=== PATIENT | male | born 1980 | race Caucasian/White ===

== ENCOUNTER 2021-11-09 15:27 | Emergency (ER) | payer SELFPAY ==
--- NOTE | ~2021-11-09 | XR_ITS ---
EXAMINATION: XR wrist LT min 3V EXAM DATE: 11/09/2021 15:54 INDICATION: Nki,Ulnar Styloid Process Pain X 6 Months TECHNIQUE: Left wrist frontal, frontal with ulnar deviation, oblique and lateral projections obtained and reviewed. There is no prior study for comparison. FINDINGS: Left wrist scapholunate joint space is maintained. There is an ulnar styloid base chronic appearing avulsion fracture with about 3 mm distraction. There are no acute fractures or dislocations identified. There is no subcutaneous gas. The soft tissue is unremarkable. There are no radiopaq ue foreign bodies. IMPRESSION: Old ulnar styloid base avulsion injury. Reviewed, dictated and finalized at location G. [facility]
[2021-11-09 15:42] VITALS: BP 140/91; PULSE 94; RESP 16; TEMP 37; O2SAT 98
--- NOTE | 2021-11-09 16:42 | ED.GENADULT ---
HPI - General Adult General Chief complaint: Extremity Injury, Upper Stated complaint: left wrist pain Source: patient Mode of arrival: ambulatory Limitations: no limitations History of Present Illness HPI narrative: Patient presents for evaluation of left wrist pain for the last six months. He has a large dog and symptoms started after he was wrestling with the pet. Pain is constant, shooting, rated 7/10 in severity. Pain radiates into left forearm. Certain movements worsen his pain. He has no loss of range of motion. No paresthesias. He is right-hand dominant. He has tried ibuprofen with minimal improvement in his symptoms thereafter. Works as a industrial truck driver Related Data Allergies Allergy/AdvReac Type Severity Reaction Status Date / Time No Known Allergies Allergy Verified 11/09/21 16:15 Review of Systems Review of Systems: CONSTITUTIONAL: Denies fever, chills, or sweats. EYES: Denies visual changes, redness, or discharge. ENT: Denies rhinorrhea, congestion, sore throat, or otalgia. CARDIOVASCULAR: Denies chest pain, palpitations, or edema. RESPIRATORY: Denies cough or dyspnea. GASTROINTESTINAL: Denies abdominal pain, nausea, vomiting, or diarrhea. GENITOURINARY: Denies dysuria or hematuria. SKIN: Denies rash or itching. MUSCULOSKELETAL:Reports left wrist pain. Denies back pain and myalgia NEUROLOGIC: Denies headache, numbness, dizziness, or weakness. PSYCHIATRIC: Denies anxiety or depression. 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 HEAD: Normocephalic, atraumatic. EYES: PERRLA and EOMI. ENT: Nares clear, no rhinorrhea or epistaxis. Mucous membranes moist. Oropharynx without tonsillar hypertrophy exudate or other lesions. Bilateral TMs pearly chavez nonbulging NECK: Supple. No adenopathy or masses. No carotid bruits or JVD CHEST: Clear to auscultation. No respiratory distress. No wheezes rales or rhonchi HEART: Regular rate and rhythm. No murmur heard. Normal peripheral pulses. ABDOMEN: Soft, nontender, nondistended, normal active bowel sounds. EXTREMITIES: Tenderness in left wrist over distal ulnar. There is no significant swelling. No crepitus or deformity. Normal range of motion, however pronation and supination reproduce pain in left wrist SKIN: Warm, dry, no rash. NEURO: No focal deficits. Alert and oriented x3. PSYCH: Normal mood and affect. Course Course Emergency Course: This is a 41-year-old male who presented with complaints of left wrist pain after an injury 6 months ago. X ray shows old ulnar fracture. He has minimal improvement with NSAIDs. We will provide him with linsey wrap and small qty of norco. Advised on RICE therapy. He should purchase wrist splint OTC as this does not appear to be new fracture. Follow up with ortho. Return for worsening symptoms. Pt in agreement with plan of care Level of Care: Express Care Visit Vital Signs Vital signs: Vital Signs Temperature 37.0 C 11/09/21 15:42 Pulse Rate 94 11/09/21 15:42 Resp
--- NOTE | 2021-11-09 17:04 | PC.NURSE ---
PT DECLINED ICE FOR COMFORT
== END 2021-11-09 16:45 | disposition home or self-care (01) ==
PROVIDERS: Emergency Provider Nurse Practitioner
DX: S66.912A Strain of unspecified muscle, fascia and tendon at wrist and hand level, left hand, initial encounter (principal); X58.XXXA Exposure to other specified factors, initial encounter; F17.210 Nicotine dependence, cigarettes, uncomplicated
CPT/HCPCS: 73110; 99213; G0463

== ENCOUNTER 2021-12-14 12:17 | Emergency (ER) | payer SELFPAY ==
--- NOTE | ~2021-12-14 | XR_ITS ---
EXAMINATION: XR hip LT min 2V DATE: 12/14/2021 13:03 INDICATION: Left hip pain. TECHNIQUE: 2 views of left hip were obtained. COMPARISON: None. FINDINGS: Bone alignment is normal. No fracture. Left hip joint space is normal. IMPRESSION: 1. Normal left hip. Reviewed, dictated and finalized at location A. IMPRESSION: 1. Normal left hip.
--- NOTE | ~2021-12-14 | XR_ITS ---
EXAMINATION: XR lumbar spine 2-3V DATE: 12/14/2021 13:04 INDICATION: Low back pain. TECHNIQUE: 3 views of lumbar spine were obtained. COMPARISON: None. FINDINGS: Bone alignment is normal. There is mild chronic anterior wedging of T11 vertebral body. Int ervertebral disc heights are normal. There are endplate osteophytes at most levels. The facet joints are unremarkable. IMPRESSION: 1. Mild lumbar spondylosis. Reviewed, dictated and finalized at location A. IMPRESSION: 1. Mild lumbar spondylosis.
[2021-12-14 12:30] VITALS: BP 143/105; PULSE 96; RESP 18; TEMP 36.9; O2SAT 99
[2021-12-14] MEDS: KETOROLAC (*BKC) 60 MG/2 ML VIAL IM (12:44)
--- NOTE | 2021-12-14 12:56 | ED.BACK ---
HPI - Back Pain/Injury General Chief Complaint: Back Pain/Injury Stated Complaint: Back Pain Time Seen by Provider: 12/14/21 12:38 Source: patient Mode of arrival: ambulatory Limitations: no limitations History of Present Illness HPI Narrative: 41 yo M presents with c/o R sided low back pain for several weeks. denies injury. 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 Also shovels out the back of truck. Has seen at chiropractor for adjustment and not helping pain. Was sent to orthopedics but they said they dont see back pain so then he was referred somewhere else but was then told he needed xrays. Taking advil for pain. Ambulatory with steady gait, hunched over. All systems reviewed and negative except as noted above. Related Data Allergies Allergy/AdvReac Type Severity Reaction Status Date / Time No Known Allergies Allergy Verified 12/14/21 12:50 Review of Systems Review of Systems: CONSTITUTIONAL: Denies fever, chills, or sweats. EYES: Denies visual changes, redness, or discharge. ENT: Denies rhinorrhea, congestion, sore throat, or otalgia. CARDIOVASCULAR: Denies chest pain, palpitations, or edema. RESPIRATORY: Denies cough or dyspnea. GASTROINTESTINAL: Denies abdominal pain, nausea, vomiting, or diarrhea. GENITOURINARY: Denies dysuria or hematuria. SKIN: Denies rash or itching. MUSCULOSKELETAL: Reports left-sided low back pain. NEUROLOGIC: Denies headache, numbness, or weakness. PSYCHIATRIC: Denies anxiety or depression. All other systems reviewed are negative, except as documented in HPI. 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 There is no relevant family history pertinent to the presenting complaint. Exam Narrative: GENERAL: This is a well-nourished, well-developed patient, in no apparent distress. HEAD: normocephalic, atraumatic. EYES: PERRL. Sclera clear/white. Vision is grossly intact. EARS: External ears normal, auditory canals clear and without drainage, TMs normal without perforation. Hearing grossly intact. NOSE: External nose normal with no obvious nasal discharge, nares without redness, no rhinorrhea. THROAT: Mucous membranes moist, posterior pharynx clear. NECK: Neck supple, non-tender without lymphadenopathy, masses or thyromegaly. CARDIOVASCULAR: Regular rate and rhythm without murmurs, gallops, or rubs. RESPIRATORY: Clear to auscultation. Breath sounds equal bilaterally. No wheezes, rales, or rhonchi. GASTROINTESTINAL: Abdomen soft, non-tender, nondistended. Bowel sounds are active. No hepato-splenomegaly, or palpable masses. No guarding. SKIN: warm, Dry, intact with no suspicious lesions or rash, good texture and turgor. NEURO: awake, alert, and oriented to person, place and time. There were no obvious focal neurologic abnormalities. EXTREMITIES: No joint tenderness, effusion, or edema noted. No calf tenderness. Negative Homans sign bilaterally. B
== END 2021-12-14 13:22 | disposition home or self-care (01) ==
PROVIDERS: Emergency Provider Nurse Practitioner Family
DX: M54.50 Low back pain, unspecified (principal); F17.210 Nicotine dependence, cigarettes, uncomplicated
CPT/HCPCS: 72100; 73502; 96372; 99213; G0463; J1885

== ENCOUNTER 2022-08-16 15:42 | Emergency (ER) | payer SELFPAY ==
--- NOTE | ~2022-08-16 | XR_ITS ---
XR hand RT min 3V DATE: 08/16/2022 16:19 INDICATION: Dog bite with puncture wound at the medial proximal third phalangeal and first metacarpal areas TECHNIQUE: AP, lateral, oblique views COMPARISON: None FINDINGS: No fracture or dislocation, periosteal reaction or bone destruction, radiopaque soft tissue foreign body or subcutaneous emphysema. IMPRESSION: Negative Reviewed, dictated and finalized at location A. ESS HELPER IMPRESSION: Negative
[2022-08-16 15:56] VITALS: BP 140/85; PULSE 94; RESP 18; TEMP 36.6; O2SAT 100
--- NOTE | 2022-08-16 15:59 | ED.UPPEXIN ---
HPI - Extremity Injury (Upper) General Chief Complaint: Wound/Laceration Stated Complaint: bit by dog, right right foot right calf Time Seen by Provider: 08/16/22 15:59 Source: patient, RN notes reviewed and old records reviewed Mode of arrival: ambulatory Limitations: no limitations History of Present Illness HPI narrative: 42-year-old male presents to the [facility] with a dog bite to his right hand with swelling and signs of redness with increased warmth to the dorsal aspect. Puncture wounds noted. Patient reports that is his own dog. The dog is up-to-date on immunizations. Bite occurred yesterday. Redness noted to the dorsal hand. Foot has a puncture wound but no signs of infection. Unknown last Tdap Related Data Allergies Allergy/AdvReac Type Severity Reaction Status Date / Time No Known Allergies Allergy Verified 08/16/22 16:03 Review of Systems Review of Systems: All systems reviewed & are unremarkable except as noted in HPI and below Constitutional: Constitutional: Reports no additional constitutional complaints, Denies chills and Denies fever(s) Eyes: Eyes: Reports no additional eye complaints ENT: Reports system reviewed and no additional complaints, except as documented Cardiovascular: Cardiovascular: Reports no additional cardiovascular complaints Respiratory: Respiratory: Reports no additional respiratory complaints Gastrointestinal: Gastrointestinal: Reports no additional gastrointestinal complaints Musculoskeletal: Musculoskeletal: Reports as per HPI Integumentary/Breasts: Skin/Breast: Reports as per HPI Neurologic: Reports system reviewed and no additional complaints, except as documented Psychiatric: Psychiatric: Reports no additional psychiatric complaints Allergic/Immunologic: Allergic/Immunologic: Reports no additional allergic/immunologic complaints [facility] Past Medical History Medical History Strain of wrist, left Surgical History Surgical History No pertinent past surgical history Family History Family History Mother Family history non-contributory Social History Social History Smoking packs per day: 0.5 Smoking cigarettes per day: 10.0 Smoking status: Current every day smoker Tobacco type: cigarettes Alcohol intake: current Alcohol use details: a few drinks daily Substance use: never 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 There is no relevant family history pertinent to the patient complaint. Exam Const: General: healthy appearing, comfortable, no acute distress, well developed, alert and well nourished Nutritional Appearance: well nourished Orientation/consciousness: patient oriented x3 Limitations: no limitations HENMT: Head: normal to inspection Ears: external ears normal Face/Nose/Sinus: Normal external nose present and Normal nares present Face and sinus: normal facial exam Mouth: Yes Normal oral and palatal mucosa present, Yes lip normal and Yes moist mucous membranes Throat: posterior oropharynx normal and uvula midline Eyes: General: appearance normal, both eyes and all related structures Pupils: Equal, round and reactive pupils present Neck: Neck: normal visual inspection, full ROM, no lymphadenopathy and no meningeal signs Chest: Chest palpation & inspection: normal inspection of the chest Resp: Effort & Inspection: normal respiratory effort and no use of accessory muscles Auscultation: clear to auscultation bilatera
[2022-08-16] MEDS: TETANUS,DIPHTHERIA,AC PERTUSSIS ADULT (0.5 ML) BOOSTRIX IM (16:28)
[2022-08-16] MEDS: cefTRIAXone 1 GM, LIDOCAINE HCL 1% LOCAL INJ 2.1 ML IM (17:10)
--- NOTE | 2022-08-16 20:42 | PC.NURSE ---
1800 noted upon arrival pt refused transfer to er for further work-up, including labs/ iv antibiotics, as provider asks after assessment/evaluation. upon discharge states will go to er for worsening symptoms.
== END 2022-08-16 17:30 | disposition home or self-care (01) ==
PROVIDERS: Emergency Provider Nurse Practitioner
DX: S61.232A Puncture wound without foreign body of right middle finger without damage to nail, initial encounter (principal); S61.431A Puncture wound without foreign body of right hand, initial encounter; S91.331A Puncture wound without foreign body, right foot, initial encounter; S81.831A Puncture wound without foreign body, right lower leg, initial encounter; W54.0XXA Bitten by dog, initial encounter; Z23 Encounter for immunization
CPT/HCPCS: 73130; 90471; 90715; 96372; 99213; G0463; J0696

== ENCOUNTER 2023-04-21 12:26 | Emergency (ER) | payer SELFPAY ==
[2023-04-21 12:35] VITALS: BP 158/107; PULSE 87; RESP 18; TEMP 36.6; O2SAT 97
--- NOTE | 2023-04-21 12:54 | ED.GENADULT ---
HPI - General Adult General Chief complaint: Urogenital-Male Stated complaint: Back Pain/Urinary Problem Time Seen by Provider: 04/21/23 12:50 Source: patient, family, RN notes reviewed and old records reviewed Mode of arrival: ambulatory Limitations: no limitations History of Present Illness HPI narrative: 43 year old male presents to express care with complaints of 20-30 pound weight loss over the past 6 months and he has had frequent vomiting of mucous in morning which is yellowish in color also. Patient reports that he has had bilateral flank pain and has felt feverish since this past Wednesday. Patient reports fatigue and feels bloated when eating, appetite is decreased. Patient has not sought care for weight loss or frequent emesis in the past 6 months. Patient is daily smoker of 1/2 to 1 pack of cigarettes daily and reports he usually drinks 2--3 drinks daily after work. MD complaint: flank pain, has felt feverish since Wednesday Onset (ago): day(s) (4-5 days flank pain and felt feverish, 6 months weight loss, frequent vomiting ) Location: back (flank) Severity scale (1-10): 5 Quality: aching Pain Consistency: colicky Exacerbating factors: eating Associated symptoms: loss of appetite and other Treatments prior to arrival: none Related Data Home Medications Medication Instructions Recorded Confirmed No Home Medications 04/21/23 04/21/23 Allergies Allergy/AdvReac Type Severity Reaction Status Date / Time No Known Allergies Allergy Verified 04/21/23 12:34 Review of Systems Review of Systems: CONSTITUTIONAL: Denies known fever, chills, or sweats, has felt feverish. EYES: Denies visual changes, redness, or discharge. ENT: Denies rhinorrhea, congestion, sore throat, or otalgia. CARDIOVASCULAR: Denies chest pain, palpitations, or edema. RESPIRATORY: Denies cough or dyspnea. GASTROINTESTINAL: Denies abdominal pain, reports nausea, vomiting usually daily in am, no diarrhea. GENITOURINARY: Denies dysuria or hematuria.positive flank pain SKIN: Denies rash or itching. MUSCULOSKELETAL: Denies back pain, joint pain, or myalgia. NEUROLOGIC: Denies headache, numbness, or weakness. PSYCHIATRIC: Denies anxiety or depression. All systems reviewed & are unremarkable except as noted in HPI and below PMFSH Past Medical History Medical History (Updated 04/21/23 @ 19:49 by Odette Morris NP) Back injury Strain of wrist, left Surgical History Surgical History No pertinent past surgical history Family History Family History Mother Family history non-contributory Social History Social History (Updated 04/21/23 @ 19:26 by Odette Morris NP) Smoking packs per day: 0.5 Smoking cigarettes per day: 10.0 Smoking status: Current every day smoker Tobacco type: cigarettes Alcohol intake: current Alcohol use details: a few drinks daily states 2-3 daily Substance use: former Substance use type: does not use Last use: 10 years ago used cocaine last 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 There is no relevant family history pertinent to the presenting complaint Exam Narrative: GENERAL: Well-appearing, well-nourished, and in no acute distress. HEAD: Normocephalic, atraumatic. EYES: PERRLA and EOMI. ENT: Nares clear, no rhinorrhea or epistaxis. Mucous membranes moist. NECK: Supple.no lymphadenopathy CHEST: Clear to auscultation. No respiratory distress.SAO2 97% on room air HEART: Regular rate and rhythm. No murmur heard. Normal peripheral pulses. ABDOMEN: Soft, nontender to palpation, nondistended, normal active latrice
[2023-04-21 13:01] LABS: Glucose Point of Care 136 mg/dl (65-105)
== END 2023-04-21 13:20 | disposition short-term general hospital (02) ==
PROVIDERS: Emergency Provider Registered Nurse
DX: R10.9 Unspecified abdominal pain (principal); R63.4 Abnormal weight loss; Z68.20 Body mass index [BMI] 20.0-20.9, adult; F17.210 Nicotine dependence, cigarettes, uncomplicated
CPT/HCPCS: 81003; 82948; 99212; G0463

== ENCOUNTER 2024-04-09 14:52 | Emergency (ER) | payer SELFPAY ==
[2024-04-09 15:06] VITALS: BP 136/77; PULSE 99; RESP 20; TEMP 36.7; O2SAT 99
--- NOTE | 2024-04-09 15:45 | ED.GENADULT ---
HPI - General Adult General Chief complaint: Extremity Injury, Upper Stated complaint: Numbness to Middle Finger Time Seen by Provider: 04/09/24 15:25 Source: patient, RN notes reviewed and old records reviewed Mode of arrival: ambulatory Limitations: no limitations History of Present Illness HPI narrative: 44 year old male presents to [facility] care with complaints of left distal middle finger numbness and tingling which started today. Patient has fungal nail to his left middle finger and he has trimmed short and also callous to the tip of his finger from playing guitar. Patient reports that he has been cleansing of his finger with peroxide and applying some TOA to his finger tip and around nail bed. Patient does have some redness to the tip of finger nail and finger tip.no acute swelling no drainage. . MD complaint: fungus to left middle finger nail, tip of finger feels numb and tingling Onset (ago): day(s) (today.) Location: left (finger tip) Severity: mild Treatments prior to arrival: other (peroxide and HODAN) Related Data Allergies Allergy/AdvReac Type Severity Reaction Status Date / Time No Known Allergies Allergy Verified 04/09/24 15:26 Review of Systems Review of Systems: CONSTITUTIONAL: Denies fever, chills, or sweats. EYES: Denies visual changes, redness, or discharge. ENT: Denies rhinorrhea, congestion, sore throat, or otalgia. CARDIOVASCULAR: Denies chest pain, palpitations, or edema. RESPIRATORY: Denies cough or dyspnea. GASTROINTESTINAL: Denies abdominal pain, nausea, vomiting, or diarrhea. GENITOURINARY: Denies dysuria or hematuria. SKIN: Denies rash or itching. has fungal nail left middle finger reports tingling and numbness to tip of finger, has trimmed nail short has some redness to distal nail bed and tip of finger MUSCULOSKELETAL: Reports some chronic lower back pain, no joint pain, or myalgia. NEUROLOGIC: Denies headache, numbness, or weakness. PSYCHIATRIC: Denies anxiety or depression. All systems reviewed & are unremarkable except as noted in HPI and below PMFSH Past Medical History Medical History (Updated 04/11/24 @ 11:05 by Odette Morris NP) Back injury Pancreatitis Strain of wrist, left Surgical History Surgical History (Updated 04/11/24 @ 10:56 by Odette Morris NP) Hx of cholecystectomy Family History Family History Mother Family history non-contributory Social History Social History (Updated 04/21/23 @ 19:26 by Odette Morris NP) Smoking packs per day: 0.5 Smoking cigarettes per day: 10.0 Smoking status: Current every day smoker Tobacco type: cigarettes Alcohol intake: current Alcohol use details: a few drinks daily states 2-3 daily Substance use: former Substance use type: does not use Last use: 10 years ago used cocaine last 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 There is no relevant family history pertinent to the presenting complaint Exam Narrative: GENERAL: Well-appearing, well-nourished, and in no acute distress. HEAD: Normocephalic, atraumatic. EYES: PERRLA and EOMI. ENT: Nares clear, no rhinorrhea or epistaxis. Mucous membranes moist.TM's normal throat pink with no swelling NECK: Supple.no lymphadenopathy CHEST: Clear to auscultation. No respiratory distress.SAO2 99% on room air HEART: Regular rate and rhythm. No murmur heard. Normal peripheral pulses. ABDOMEN: Soft, nontender, nondistended, normal active bowel sounds. EXTREMITIES: Normal range of motion. No edema. SKIN: Warm, dry, no rash.left middle finger reported tingling and numbness with fungal nail noted which patient has trimmed short with some red
== END 2024-04-09 16:05 | disposition home or self-care (01) ==
PROVIDERS: Emergency Provider Registered Nurse
DX: L03.019 Cellulitis of unspecified finger (principal); B35.1 Tinea unguium; F17.210 Nicotine dependence, cigarettes, uncomplicated
CPT/HCPCS: 99213; G0463

== ENCOUNTER 2024-05-08 18:25 | Emergency (ER) | payer SELFPAY ==
[2024-05-08 18:42] VITALS: BP 146/106; PULSE 80; RESP 20; TEMP 36.6; O2SAT 100
[2024-05-08 18:54] VITALS: BP 146/106; PULSE 80; RESP 20; TEMP 36.6; O2SAT 100
--- NOTE | 2024-05-08 19:08 | ED.SKABFB ---
HPI - Skin/Abscess/Foreign Bdy General Chief complaint: Extremity Problem,Nontraumatic Stated complaint: left hand middle finger Time Seen by Provider: 05/08/24 19:08 Source: patient Mode of arrival: ambulatory Limitations: no limitations History of Present Illness HPI narrative: 44-year-old male presents with complaint of fungal infection to fingernails of hands and toes. States last time he was here he was given antibiotic. Took all of antibiotic with no change. All systems reviewed and negative except as noted above. Related Data Allergies Allergy/AdvReac Type Severity Reaction Status Date / Time No Known Allergies Allergy Verified 05/08/24 18:45 Review of Systems Review of Systems: CONSTITUTIONAL: Denies fever, chills, or sweats. EYES: Denies visual changes, redness, or discharge. ENT: Denies rhinorrhea, congestion, sore throat, or otalgia. CARDIOVASCULAR: Denies chest pain, palpitations, or edema. RESPIRATORY: Denies cough or dyspnea. GASTROINTESTINAL: Denies abdominal pain, nausea, vomiting, or diarrhea. GENITOURINARY: Denies dysuria or hematuria. SKIN: Denies rash or itching. Reports fungal nail infection. MUSCULOSKELETAL: Denies back pain, joint pain, or myalgia. NEUROLOGIC: Denies headache, numbness, or weakness. PSYCHIATRIC: Denies anxiety or depression. All other systems reviewed are negative, except as documented in HPI. COUNT INCLUDES THE [facility] Past Medical History Medical History (Updated 05/08/24 @ 19:13 by Gisele Jones NP) Back injury Pancreatitis Strain of wrist, left Surgical History Surgical History (Updated 04/11/24 @ 10:56 by Odette Morris NP) Hx of cholecystectomy Family History Family History Mother Family history non-contributory Social History Social History (Updated 04/21/23 @ 19:26 by Odette Morris NP) Smoking packs per day: 0.5 Smoking cigarettes per day: 10.0 Smoking status: Current every day smoker Tobacco type: cigarettes Alcohol intake: current Alcohol use details: a few drinks daily states 2-3 daily Substance use: former Substance use type: does not use Last use: 10 years ago used cocaine last Additional occupation/education comments: [employer] driver Gender identity (if verbalized by the patient): Male Sexual Orientation (if Verbalized by the Patient): Straight or Heterosexual Spiritual care concerns: No Comments At time of signature, agree with nursing past medical, surgical, social and family history. There is no relevant family history pertinent to the presenting complaint. Exam Narrative: GENERAL: This is a well-nourished, well-developed patient, in no apparent distress. HEAD: normocephalic, atraumatic. EYES: PERRL. Sclera clear/white. Vision is grossly intact. EARS: External ears normal NOSE: External nose normal NECK: Neck supple, non-tender without lymphadenopathy, masses or thyromegaly. CARDIOVASCULAR: Regular rate and rhythm without murmurs, gallops, or rubs. RESPIRATORY: Clear to auscultation. Breath sounds equal bilaterally. No wheezes, rales, or rhonchi. SKIN: warm, Dry, intact with no suspicious lesions or rash, good texture and turgor. L middle finger nail thick, yellowish, lifted away from nailbed. All toenails thick, yellow. some peeling. NEURO: awake, alert, and oriented to person, place and time. There were no obvious focal neurologic abnormalities. EXTREMITIES: No joint tenderness, effusion, or edema noted. Course Course Level of Care: Express Care Visit Vital Signs Vital signs: Vital Signs Temperature 36.6 C 05/08/24 18:42 Pulse Rate 80 05/08/24 18:42 Respiratory Rate 20 05/08/24 18:42 Blood Pressure 146/106 H 05/08/24 18:42 Pulse Oximetry 100 05/08/24 18:42 Oxygen Delivery Room Air 05/08/24 18:42 Temperature 36.6 C 05/08/24 18:54 Pulse Rate 80 05/08/24 18:54 Respiratory Rate 20 05/08/24 18:54 Blood Press
== END 2024-05-08 19:18 | disposition home or self-care (01) ==
PROVIDERS: Emergency Provider Nurse Practitioner Family
DX: B35.1 Tinea unguium (principal); F17.210 Nicotine dependence, cigarettes, uncomplicated
CPT/HCPCS: 99213; G0463